=== PATIENT | female | born 1990 | race Caucasian/White ===

== ENCOUNTER 2024-05-11 11:40 | Emergency (ER) | payer OTHER, SELFPAY ==
[2024-05-11 12:02] VITALS: BP 123/80; PULSE 102; RESP 16; TEMP 36.7; O2SAT 100
--- NOTE | 2024-05-11 12:45 | ED.URI ---
HPI - URI/Sore Throat General Chief Complaint: Upper Respiratory Infection Stated Complaint: runny nose,throat issue Time Seen by Provider: 05/11/24 12:34 Source: patient, family (Mother) and RN notes reviewed Mode of arrival: ambulatory Limitations: no limitations History of Present Illness HPI Narrative: Patient presents today complaining of a 3-4 day history of rhinorrhea and postnasal drip. The postnasal drip is leading to cough and sore throat. Patient states his is fairly chronic for at least several months. She has been on and off antibiotics and steroids which seemed to help at the time, but when she is off of them her symptoms return. She has been using Mucinex and Flonase without much relief. Related Data Home Medications Medication Instructions Recorded Confirmed aspirin 81 mg chewable tablet 81 mg PO DAILY 05/11/24 05/11/24 beclomethasone dipropionate 80 See Rx Instructions .Route .COMPLEX 05/11/24 05/11/24 mcg/actuation HFA breath activated aerosol (Qvar RediHaler) famotidine 40 mg tablet 40 mg PO DAILY 05/11/24 05/11/24 fluticasone propionate 50 See Rx Instructions .Route .COMPLEX 05/11/24 05/11/24 mcg/actuation nasal spray,suspension metoprolol succinate 25 mg 25 mg PO DAILY 05/11/24 05/11/24 tablet,extended release 24 hr montelukast 10 mg tablet 10 mg PO DAILY 05/11/24 05/11/24 warfarin 1 mg tablet See Rx Instructions .Route .COMPLEX 05/11/24 05/11/24 Allergies Allergy/AdvReac Type Severity Reaction Status Date / Time vancomycin Allergy Intermediate Itching Verified 05/11/24 12:20 caffeine AdvReac Intermediate Palpitation Verified 05/11/24 12:20 s Penicillins AdvReac Intermediate Palpitation Verified 05/11/24 12:20 s promethazine [From Phenergan] AdvReac Intermediate Palpitation Verified 05/11/24 12:20 s pseudoephedrine AdvReac Intermediate Palpitation Verified 05/11/24 12:20 [From Sudafed] s Review of Systems Review of Systems: CONSTITUTIONAL: Denies body aches, fever, chills, or sweats. EYES: Denies visual changes, redness, or discharge. ENT: Denies rhinorrhea, congestion. + postnasal drip, rhinorrhea, sore throat CARDIOVASCULAR: Denies chest pain, palpitations, or edema. RESPIRATORY: Denies dyspnea.+ cough GASTROINTESTINAL: Denies abdominal pain, nausea, vomiting, or diarrhea. GENITOURINARY: Denies dysuria or hematuria. SKIN: Denies rash, itching, or wounds. MUSCULOSKELETAL: Denies back pain, joint pain, or myalgia. NEUROLOGIC: Denies headache, numbness, tingling, or weakness. PSYCH: Denies depression or anxiety. [facility] Past Medical History Medical History (Updated 05/11/24 @ 12:51 by Kayy Loera, BUSINESS CONTROL MANAGER, ) Aortic stenosis Pacemaker Comments At time of signature, I have reviewed and agree with nursing past medical, surgical, social and family history unless otherwise noted. Please see nursing chart for further information. There is no relevant family history pertinent to the presenting complaint Exam Narrative: GENERAL: Well-appearing, well-nourished, and in no acute distress. HEAD: Normocephalic, atraumatic. EYES: EOMI. No redness or drainage. Conjunctivae normal. ENT: Mucous membranes pink and moist. Nares clear. No rhinorrhea. TMs normal bilaterally. Throat mildly erythematous posteriorly with moderate amount white postnasal drainage. Uvula midline. NECK: Normal AROM. Supple. No lymphadenopathy. CHEST: No respiratory distress. Clear to auscultation. HEART: Regular rate and rhythm. Click noted. EXTREMITIES: Normal range of motion. No edema. SKIN: Warm, dry, no rash. Capillary refill normal. Normal skin turgor. NEURO: No focal deficits. Alert and oriented x3. Gait steady. PSYCH: Normal affect. No signs of depression or anxiety. Course Course Level of Care: Express Care Visit Vital Signs Vital signs: Vital Signs Temperature 98.0 F 05/11/24 12:02 Pulse Rate 102 H 05/11/24 12:02 Respiratory Rate 16 05/11/24 1
== END 2024-05-11 12:54 | disposition home or self-care (01) ==
PROVIDERS: Emergency Provider Nurse Practitioner
DX: J30.2 Other seasonal allergic rhinitis (principal); I35.0 Nonrheumatic aortic (valve) stenosis; Z95.0 Presence of cardiac pacemaker; Z79.82 Long term (current) use of aspirin; Z79.01 Long term (current) use of anticoagulants
CPT/HCPCS: 99202; G0463